=== PATIENT | female | born 2000 | race Two or more races ===

== ENCOUNTER 2020-05-05 15:18 | Emergency (ER) | payer OTHER ==
[~2020-05-05] VITALS: Ht 165.1 cm; Wt 52.2 kg
[2020-05-05 15:30] VITALS: BP 117/67
--- NOTE | 2020-05-05 15:36 | NUR ---
PT AMB TO BED 7
--- NOTE | 2020-05-05 15:45 | NUR ---
19 Y/O F BIB SELF FROM HOME WITH C/C CHEST PAIN. PT STATES CHEST PAIN BEGAN 11PM ON 05/04, 09/22 DULL PAIN THAT RADIATES TO LEFT ARM. PT STATES LEFT ARM WEAKNESS/PRESSURE. PT STATES CP STOPPED AT 4AM. PT STATES ASSOCIATED SOB, LUNG SOUNDS CLEAR BILATERALLY. PT DENIES DIZZINESS, BLURRY VISION. PT STATES ASSOCIATED NAUSEA, DIARRHEA X 2. PT STATES COVID TESTED DONE IN MARCH AND RESULTS NEGATIVE. 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 VSS. BED LOCKED IN LOWEST POSITION, SIDE RAILS X 1, CALL LIGHT IN REACH HX/MEDS/SX: DENIES NKA
[2020-05-05] MEDS ORDERED: LORazepam 0.5 MG TAB PO ONE (15:55)
--- NOTE | 2020-05-05 16:10 | NUR ---
rad at bedside
--- NOTE | 2020-05-05 16:30 | NUR ---
PT RESTING AT THIS TIME. PT STATES PAIN IS 3/10 AFTER 0.5MG ATIVAN PO. 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 ALL PT NEEDS MET AT THIS TIME. 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
--- NOTE | 2020-05-05 17:10 | NUR ---
Patient discharged with v/s stable. Written and verbal after care instructions given and explained. Patient alert, oriented and verbalized understanding of instructions. Ambulatory with steady gait. All questions addressed prior to discharge. ID band removed. Patient advised to follow up with PMD. Rx of Hydroxyzine, Naprosyn given. Patient educated on indication of medication including possible reaction and side effects. Opportunity to ask questions provided and answered.
[2020-05-05 17:15] VITALS: BP 105/64
== END 2020-05-05 17:10 | disposition home or self-care (01) ==
LOC: MED 15:18
DX: R07.9 Chest pain, unspecified (principal); R53.1 Weakness
CPT/HCPCS: 71045; 81025; 93005; 99283